=== PATIENT | male | born 1955 ===

== ENCOUNTER 2021-11-17 13:01 | Emergency (ER) | payer SELFPAY ==
[2021-11-17 13:13] VITALS: BP 142/89
--- NOTE | 2021-11-17 17:22 | XRay Report ---
XR chest 1V ap INDICATION / CLINICAL INFORMATION: Weakness COMPARISON: None available. FINDINGS: SUPPORT DEVICES: None. HEART / MEDIASTINUM: No significant abnormality. LUNGS / PLEURA: Linear opacity in the right midlung zone, likely subsegmental atelectasis. No definit e airspace disease. Costophrenic sulci are sharp. No pneumothorax. ADDITIONAL FINDINGS: No significant additional findings. IMPRESSION: 1. No acute findings. Signer Name: David Gamble MD Signed: 11/17/2021 5:18 PM Workstation Name: [id number]
[2021-11-17 18:22] LABS: Hematocrit 32.7 % (35.5-45.6); Hemoglobin 10.4 gm/dl (11.8-15.2); Mean Corpuscular HGB Conc 32 % (32-34); Mean Corpuscular Volume 84 fl (84-94); Platelet Count 329 K/mm3 (140-440)
[2021-11-17 18:30] LABS: Red Cell Distribution Width 21.9 % (13.2-15.2)
[2021-11-17 18:42] LABS: Alanine Aminotransferase 37 units/L (7-56); Albumin 3.9 g/dL (3.9-5); BUN/Creatinine Ratio 24; Blood Urea Nitrogen 29 mg/dL (9-20); Calcium 8.7 mg/dL (8.4-10.2); Hemolysis Index 11
--- NOTE | 2021-11-17 19:30 | Emergency Department Report ---
ED General Adult HPI - General Chief complaint: Weakness Stated complaint: ETOH, HOMELESS Time Seen by Provider: 11/17/21 16:33 Source: EMS Mode of arrival: Stretcher Limitations: No Limitations - History of Present Illness Initial comments: EMS CALLED BY PD FOR LYING ON SIDE OF ROAD. A&[address]. BGL 105 DENIES COMPLAINTS. -: week(s) Quality: aching Consistency: intermittent Improves with: none Worsens with: none - Related Data Allergies Allergy/AdvReac Type Severity Reaction Status Date / Time No Known Allergies Allergy Verified 11/17/21 13:13 ED Review of Systems ROS: Stated complaint: ETOH, HOMELESS Other details as noted in HPI Constitutional: denies: chills, fever Eyes: denies: eye pain, eye discharge, vision change ENT: denies: ear pain, throat pain Respiratory: denies: cough, shortness of breath, wheezing Cardiovascular: denies: chest pain, palpitations Endocrine: no symptoms reported Gastrointestinal: denies: abdominal pain, nausea, diarrhea Genitourinary: denies: urgency, dysuria Musculoskeletal: denies: back pain, joint swelling, arthralgia Skin: denies: rash, lesions Neurological: denies: headache, weakness, paresthesias Psychiatric: denies: anxiety, depression Hematological/Lymphatic: denies: easy bleeding, easy bruising ED Past Medical Hx - Past Medical History Previous Medical History?: No ED Physical Exam - General Limitations: No Limitations General appearance: other (homless, poor hygeine unkempt ) - Head Head exam: Present: atraumatic, normocephalic - ENT ENT exam: Present: mucous membranes moist - Neck Neck exam: Present: normal inspection - Respiratory Respiratory exam: Present: normal lung sounds bilaterally. Absent: respiratory distress - Cardiovascular Cardiovascular Exam: Present: regular rate, normal rhythm. Absent: systolic murmur, diastolic murmur, rubs, gallop - GI/Abdominal GI/Abdominal exam: Present: soft, normal bowel sounds - Rectal Rectal exam: Present: deferred - Extremities Exam Extremities exam: Present: normal inspection - Back Exam Back exam: Present: normal inspection - Neurological Exam Neurological exam: Present: alert, oriented X3 - Psychiatric Psychiatric exam: Present: normal affect, normal mood - Skin Skin exam: Present: warm, dry, intact, normal color. Absent: rash ED Course Vital Signs 11/17/21 13:09 Temperature 98 F Pulse Rate 111 H Respiratory 16 Rate Blood Pressure 142/89 [Right] O2 Sat by Pulse 98 Oximetry - Reevaluation(s) Reevaluation #1: 11/17/21 19:29 work up neg , x ray showed possible atectasis , pt disppeared from waiting room has been called overhead with no asnwer ED Medical Decision Making - Lab Data Result diagrams: 11/17/21 18:08 11/17/21 18:08 Critical care attestation.: If time is entered above; I have spent that time in minutes in the direct care of this critically ill patient, excluding procedure time. ED Disposition Clinical Impression: Chest pain, Weakness Disposition: 07 LEFT AWOL/ELOPED Is pt being admited?: No Does the pt Need Aspirin: No Condition: Stable Instructions: Nonspecific Chest Pain, Adult Referrals: PRIMARY CARE, [Primary Care Provider] - 3-5 Days
[2021-11-18 07:19] LABS: Anisocytosis 1+; Platelet Estimate Consistent w Auto; Total Cells Counted 100
== END 2021-11-18 03:47 | disposition left against medical advice (07) ==
LOC: ED 13:01
DX: R07.9 Chest pain, unspecified (principal); R53.1 Weakness
CPT/HCPCS: 36415; 71045; 80053; 83735; 84484; 85007; 85025; 99284

== ENCOUNTER 2021-11-24 11:00 | Emergency (ER) | payer SELFPAY ==
--- NOTE | 2021-11-24 15:18 | Emergency Department Report ---
ED General Adult HPI - General Chief complaint: Adult Asthma Stated complaint: ASTHMA Time Seen by Provider: 11/24/21 15:13 Source: EMS Mode of arrival: Stretcher Limitations: No Limitations - History of Present Illness Initial comments: Patient was brought in by EMS because he "looked short of breath." Patient states that he was referred here by a zoroastrian but he does not know why. He has no complaint. He has no chest pain. He does not feel short of breath. He has no cough or congestion. Patient states that he does not feel like he needs to be seen by . He does not need a doctor's appointment. He has no problems. He really was not sure why the zoroastrian referred him here. He is asking to be discharged. - Related Data Allergies Allergy/AdvReac Type Severity Reaction Status Date / Time No Known Allergies Allergy Verified 11/24/21 11:03 ED Review of Systems ROS: Stated complaint: ASTHMA Other details as noted in HPI Comment: All other systems reviewed and negative Constitutional: denies: fever ENT: denies: throat pain Respiratory: denies: cough Cardiovascular: denies: chest pain Gastrointestinal: denies: abdominal pain Musculoskeletal: denies: back pain Neurological: denies: headache Psychiatric: denies: suicidal thoughts ED Past Medical Hx - Past Medical History Hx Asthma: Yes - Family History Family history: asthma ED Physical Exam - General Limitations: No Limitations, Other (Pulse ox noted and normal) General appearance: alert, in no apparent distress, other (Unkempt) - Head Head exam: Present: atraumatic, normocephalic - Eye Eye exam: Present: normal appearance, EOMI. Absent: scleral icterus - ENT ENT exam: Present: normal external ear exam - Neck Neck exam: Present: normal inspection - Respiratory Respiratory exam: Absent: respiratory distress - Cardiovascular Cardiovascular Exam: Absent: JVD - Extremities Exam Extremities exam: Absent: calf tenderness - Back Exam Back exam: Absent: CVA tenderness (R), CVA tenderness (L) - Neurological Exam Neurological exam: Present: alert, oriented X3, CN II-XII intact, normal gait. Absent: motor sensory deficit - Psychiatric Psychiatric exam: Present: normal affect, normal mood - Skin Skin exam: Present: warm, dry ED Course Vital Signs 11/24/21 11:01 Temperature 98 F Pulse Rate 100 H Respiratory 18 Rate Blood Pressure 137/87 [Left] O2 Sat by Pulse 100 Oximetry - Reevaluation(s) Reevaluation #1: 11/24/21 15:21 Patient was here for an unknown reason. He is not hypoxic. He is not dyspneic. Patient wanted to be discharged. He did not want to see a physician. He was invited to return if he needed to. ED Medical Decision Making - Medical Decision Making Patient states that he really does not know why he was here. He is not having shortness of breath. He does not appear to be toxic. Vital signs have been reviewed. Patient does not want to be seen by physician. He was referred for outpatient follow-up and instructed that he can always return here if he needs to be seen emergently. Critical Care Time: No Critical care attestation.: If time is entered above; I have spent that time in minutes in the direct care of this critically ill patient, excluding procedure time. ED Disposition Clinical Impression: Well adult health check Disposition: 01 HOME / SELF CARE / HOMELESS Is pt being admited?: No Condition: Stable Additional Instructions: RETURN FOR PROBLEMS. Referrals: PRIMARY CAREMD [Referring] - 3-5 Days RAVEN KOHLI MD [Staff Physician] - 3-5 Days
[2021-11-24 15:28] VITALS: BP 130/80
== END 2021-11-24 15:37 | disposition home or self-care (01) ==
LOC: ED 11:00
DX: Z00.00 Encounter for general adult medical examination without abnormal findings (principal); J45.909 Unspecified asthma, uncomplicated; Z79.899 Other long term (current) drug therapy
CPT/HCPCS: 99283